=== PATIENT | female | born 1970 | race Caucasian/White ===

== ENCOUNTER 2022-12-30 15:21 | Emergency (ER) | payer BC ==
[~2022-12-30] VITALS: Ht 157.5 cm; Wt 90.7 kg
[2022-12-30 15:51] LABS: BASO% 0.9 % (0-3); EOS% 3.8 % (0-8); HEMATOCRIT 38.9 % (37.0-47.0); IMMATURE GRANULOCYTES 0.4 % (0.0-5.0); LYMPH% 34.1 % (15-41); MEAN CORPUSCULAR HGB 29.7 pG CALC (26.0-32.0); MEAN CORPUSCULAR HGB CONC 33.4 g/dL CAL (32.0-36.0); MONO% 7.5 % (2-13); NEUT# 4.95 thou/uL (2.00-7.15); NEUT% 53.3 % (42-76); RED BLOOD COUNT 4.37 mill/uL (4.20-5.60); RED CELL DISTRI WIDTH 13.4 % (11.5-15.5)
[2022-12-30 16:03] LABS: ALBUMIN 4.3 g/dL (3.2-5.0); ALKALINE PHOSPHATASE 70 u/l (38-126); ANION GAP 11 (6-22 (CALC)); BILIRUBIN, TOTAL 0.4 mg/dL (0.02-1.3); BUN 11 mg/dL (7-17); BUN/CREATININE RATIO 15 (12-20 (CALC)); CARBON DIOXIDE 23 mmol/l (22-30); CHLORIDE 108 mmol/l (95-108); CREATININE 0.8 mg/dL (0.5-1.0); GFR FOR AFR.AMER. > 60 ML/MIN (>=60 (CALC)); GFR OTHER RACES > 60 ML/MIN (>=60 (CALC)); POTASSIUM 3.4 mmol/l (3.5-5.1); SGOT/AST 28 u/l (14-36); SODIUM 138 mmol/l (137-146); TOTAL PROTEIN 7.5 g/dL (6.3-8.2)
[2022-12-30] MEDS ORDERED: OMEPRAZOLE DR20 MG (16:38)
[2022-12-30] MEDS ORDERED: SERTRALINE50 MG PO (16:39)
[2022-12-30] MEDS ORDERED: ZOLOFT50 MG PO (16:40)
[2022-12-30] MEDS ORDERED: TRAZODONE50 MG PO (16:40)
[2022-12-30 20:26] VITALS: BP 105/64
== END 2022-12-30 20:28 | disposition left against medical advice (07) | DRG 313 ==
LOC: ED 15:21 → ED-I 16:19 → ED 20:28
PROVIDERS: Family Medicine
DX: R07.9 Chest pain, unspecified (principal); F32.A Depression, unspecified; K44.9 Diaphragmatic hernia without obstruction or gangrene